=== PATIENT | female | born 1975 | race Caucasian/White ===

== ENCOUNTER 2021-03-10 07:08 | Inpatient (IN) | payer BC ==
[~2021-03-10 07:08] MED LIST: Acetaminophen 500 MG Tab PO ONE; Celecoxib 200 MG Cap PO ONE; Dexamethasone 4 MG/ML SDV ONE; Glycopyrrolate 0.2 MG/ML 5 ML MDV ONE; Ketamine 15 MG in Sodium Chloride 0.9% 19.85 ML IV SCH; Ketamine 500 MG/5 ML MDV IV SCH; Lactated Ringers 1,000 ML ONE; Meropenem 500 MG SDV ONE; Neostigmine Methylsulfate 1 MG/ML 5 ML Syringe ONE; Ondansetron 4 MG/2 ML SDV ONE; Propofol 200 MG/20 ML SDV ONE; Rocuronium 50 MG/5 ML Vial ONE; Scopolamine 1.5 MG Transdermal Patch TOP ONE; Succinylcholine 200 MG/10 ML MDV ONE; cefOXitin 2 GM Vial ONE; fentaNYL 250 MCG/5 ML SDV ONE
[2021-03-10] MEDS ORDERED: Dextrose 5%-Lactated Ringers 1,000 ML IV SCH (07:15)
[2021-03-10] MEDS ORDERED: Albuterol/Ipratropium 3.0-0.5 MG/3 ML Neb Soln NEB ONE (07:15)
[2021-03-10] MEDS ORDERED: Meropenem 500 MG in Sodium Chloride 0.9% 50 ML IV ONE (07:45)
[2021-03-10 08:06] LABS: HEMOGLOBIN A1C 5.1 % (4.5-6.2)
[2021-03-10] MEDS ORDERED: fentaNYL 250 MCG/5 ML SDV ONE ×2 (09:29→09:56)
[2021-03-10] MEDS ORDERED: Metoclopramide 10 MG/2 ML SDV IVPUSH PRN (14:00)
[2021-03-10] MEDS ORDERED: Acetaminophen 500 MG Tab PO PRN (14:00)
[2021-03-10] MEDS ORDERED: Ondansetron 4 MG/2 ML SDV IVPUSH PRN (14:00)
[2021-03-10] MEDS ORDERED: Labetalol 20 MG/4 ML Syringe IVPUSH PRN (14:00)
[2021-03-10] MEDS ORDERED: HYDROmorphone 1 MG/ML Syringe IV PRN (14:00)
[2021-03-10] MEDS ORDERED: HYDROmorphone 0.5 MG/0.5 ML Syringe IVPUSH PRN (14:00)
[2021-03-10] MEDS ORDERED: Albuterol/Ipratropium 3.0-0.5 MG/3 ML Neb Soln INH PRN (14:00)
[2021-03-10] MEDS ORDERED: diphenhydrAMINE 50 MG/ML SDV IVPUSH PRN (14:00)
[2021-03-10] MEDS: Acetaminophen 500 MG Tab PO SCH ×2 (14:18→22:47)
[2021-03-10] MEDS: hydrOXYzine HCL 100 MG/2 ML SDV IM PRN ×2 (14:21→19:28)
[2021-03-10] MEDS: Albuterol/Ipratropium 3.0-0.5 MG/3 ML Neb Soln INH SCH ×2 (14:34→20:40)
[2021-03-10] MEDS: Pantoprazole 40 MG Vial IVPUSH SCH (14:52)
[2021-03-10] MEDS: Meropenem 500 MG in Sodium Chloride 0.9% 50 ML IV SCH ×2 (14:52→20:41)
[2021-03-10] MEDS: oxyCODONE 5 MG Tab PO PRN ×2 (15:24→22:47)
[2021-03-10] MEDS: MVI, Adult with Vitamin K 10 ML, Thiamine 200 MG, Zinc/Copper/Manganese/Selenium 1 ML i... IV SCH ×4 (15:26)
[2021-03-10] MEDS: Cyclobenzaprine 10 MG Tab PO PRN (16:47)
[2021-03-10] MEDS: Heparin Sodium 5,000 Units/ML Vial SUBCUT SCH (17:33)
[2021-03-10] MEDS: traZODone 50 MG Tab PO PRN (20:40)
[2021-03-10] MEDS: Formoterol/Mometasone 200-5 MCG 8.8 GM Inhaler IH SCH (20:40)
[2021-03-10] MEDS: ClonazePAM 0.5 MG Tab PO SCH (20:40)
[2021-03-10] MEDS: Montelukast 10 MG Tab PO SCH (20:41)
[2021-03-10] MEDS: Dextrose 5%-Lactated Ringers 1,000 ML IV SCH (20:55)
[2021-03-11] MEDS: Cyclobenzaprine 10 MG Tab PO PRN (01:43)
[2021-03-11] MEDS ORDERED: Iopamidol 612 MG/ML 50 ML SDV PO STA (01:55)
[2021-03-11] MEDS: Meropenem 500 MG in Sodium Chloride 0.9% 50 ML IV SCH ×2 (02:27→09:23)
[2021-03-11] MEDS: hydrOXYzine HCL 100 MG/2 ML SDV IM PRN ×2 (02:32→07:10)
--- NOTE | 2021-03-11 03:26 | CRLCR ---
For Patients: As a result of the Century Cures Act, medical imaging exams and procedure reports are released immediately into your electronic medical record. You may view this report before your referring provider. If you have questions, please contact your health care provider. Indication: Status post duodenal switch surgery. Technique: Abdomen with oral contrast 5 views. Comparison: None. Findings/Impression: Oral contrast flows through the stomach into the small bowel. No sign of oral contrast extravasation/leak. No bowel obstructive changes or other significant abnormality. Dictated by Chriss Arnold MD @ 03/13/2021 10:15:42 AM (Electronically Signed)
[2021-03-11] MEDS: Dextrose 5%-Lactated Ringers 1,000 ML IV SCH ×3 (04:00→13:21)
[2021-03-11] MEDS: Heparin Sodium 5,000 Units/ML Vial SUBCUT SCH ×2 (05:08→18:04)
[2021-03-11] MEDS: Acetaminophen 500 MG Tab PO SCH ×3 (05:08→22:34)
[2021-03-11] MEDS: oxyCODONE 5 MG Tab PO PRN ×3 (05:08→20:00)
[2021-03-11] MEDS ORDERED: Ondansetron 4 MG Tab.DIS PO PRN (06:20)
[2021-03-11] MEDS: Levothyroxine 25 MCG Tab PO SCH (07:09)
[2021-03-11] MEDS: Albuterol/Ipratropium 3.0-0.5 MG/3 ML Neb Soln INH SCH ×4 (07:18→20:31)
[2021-03-11] MEDS: Formoterol/Mometasone 200-5 MCG 8.8 GM Inhaler IH SCH ×2 (07:40→20:32)
--- NOTE | 2021-03-11 08:53 | PN ---
DATE OF SERVICE: 03/11/2021 SUBJECTIVE: Alicia is postop day 1. Vital signs have been stable. Upper GI is normal. Oral intake 510. Urine output via Reyes catheter is 2550. FRED put out 90 mL of a light red drainage. She does reports some midepigastric discomfort. States it feels like a bubble. Has had no other questions or concerns. Has been using her incentive spirometer. OBJECTIVE: GENERAL: Alicia is a pleasant 45-year-old female. She is alert, orientated, has the head of the bed raised to almost a sitting position. VITAL SIGNS: TPR is 98.8, 79, 18. Blood pressure 148/77. HEENT: Negative. NECK: Supple. HEART: Regular rate and rhythm. LUNGS: Clear. ABDOMEN: Abdominal binder is on. Dressings dry and intact. FRED drain as above. EXTREMITIES: Without peripheral edema. ASSESSMENT: 1. Diagnostic laparoscopy with laparoscopic duodenal switch. 2. Liver biopsy. 3. Repair of paraesophageal hernia. 4. Excision of mediastinal lipoma. 5. Excision of nodular lesion, mid greater curvature of stomach. POSTOPERATIVE DIAGNOSES: 1. Morbid obesity, body mass index 46. 2. Hepatomegaly. 3. Paraesophageal diaphragmatic hernia. 4. Mediastinal lipoma. 5. Nodular lesion, mid greater curvature of the stomach. Date of procedure: 03/10/2021. Surgeon: Steven Davenport MD PLAN: 1. Decrease IV to 100 mL per hour. 2. Step 2 gastric bypass diet with no cereal. 3. Communication order for 3 med cups per hour, 1 every 20 minutes. 4. Zofran ODT 4 mg q.4 hours sublingual p.r.n. nausea. 5. Atarax 50 mg q.4 hours p.r.n. pain. 6. Discontinue Reyes catheter. 7. Discontinue continuous pulse ox. 8. Discontinue telemetry. 9. Continue use of incentive spirometer. 10.Ambulate 6 times daily and reminder to use energy protocol for pain management. 11.We will evaluate p.r.n. or in a.m. Agatha Richardson PA-C /[id number]
[2021-03-11] MEDS: traMADol 50 MG Tab PO PRN (09:22)
[2021-03-11] MEDS: DULoxetine 30 MG Cap PO SCH (09:27)
[2021-03-11] MEDS: Fluticasone Propionate Nasal Spray 16 GM Bottle NASBOTH SCH (09:27)
[2021-03-11] MEDS: Celecoxib 200 MG Cap PO SCH (09:27)
[2021-03-11] MEDS: buPROPion 150 MG Tab.ER PO SCH (09:27)
[2021-03-11] MEDS: SCOPOLAMINE PATCH CHECK TOP SCH (09:28)
--- NOTE | 2021-03-11 10:08 | OR ---
DATE OF PROCEDURE: 03/10/2021 SURGEON: Steven Davenport MD PREOPERATIVE DIAGNOSIS: Morbid obesity. POSTOPERATIVE DIAGNOSES: 1. Morbid obesity. 2. Marked hepatomegaly. 3. Paraesophageal diaphragmatic hernia. 4. Mediastinal lipoma. 5. Nodular lesion on mid greater curvature of stomach. OPERATIVE PROCEDURES: Diagnostic laparoscopy with: 1. Laparoscopic duodenal switch (04825). 2. Aayush-Cut needle liver biopsy (50029). 3. Repair of paraesophageal diaphragmatic hernia (90819). 4. Excision of mediastinal lipoma (74662). 5. Excision of nodular lesion on greater curvature of stomach (54531). ANESTHESIA: General. TUBE BENDING MACHINE OPERATOR: Agatha Richardson PA-C INDICATIONS FOR PROCEDURE: This is a 45-year-old female presenting with longstanding morbid obesity and increasingly significant comorbidities. After preoperative evaluation and discussion, she wished to proceed with a duodenal switch. Potential risks of the procedure including bleeding, infection, injury to underlying viscera, problems with leaks from the GI tract, staple lines, or anastomosis as well as possibility of cardiopulmonary, septic, or hemorrhagic complications leading to were discussed, and the patient wishes to proceed. DETAILS OF PROCEDURE: The patient was taken to the operating room, and after general endotracheal anesthesia was induced, was placed in a lithotomy position. Reyes catheter was inserted, and the abdomen prepped and draped. 20 cm inferior and 5 cm left of the xiphoid process, a transverse incision was made, and the peritoneal cavity entered under direct vision with an Optiview trocar. Bilateral transversus abdominis plane blocks were placed, and 5 additional trocars were then placed across the upper mid abdomen. Some adhesions between the omentum and the anterior abdominal wall were taken down with Harmonic scalpel. The liver was noted to be markedly fatty, infiltrated, and a Aayush-Cut needle biopsy obtained from left lobe of liver. Minimal bleeding from the biopsy site was controlled with electrocautery. The small bowel was then identified at the ileocecal valve and then traced back 300 cm. Of note, there are no significant adhesions in the small bowel despite the patient having fairly extensive previous pelvic surgery and the small bowel came up to the level of the duodenum without any significant tension. A suture was then placed between the omentum and small bowel of 300 cm lisa to allow a subsequent ease of identification. The liver was retracted anteriorly. The patient was noted to have 2 findings. One was a roughly 2 to 3 mm nodular lesion on the mid greater curvature of the stomach. This was excised and sent as a separate specimen. If this happens to be neoplastic and margins are reported as close or positive, it should be noted that subsequent sleeve gastrectomy revealed several centimeter margin away from the nodular lesion and in terms of the resected stomach. The patient also noted to have significant paraesophageal diaphragmatic hernia. The latter was then reduced, and the peritoneum overlying incised and reflected downward. During the course of the crural dissection, a mediastinal lipoma was encountered, and this was excised to allow more satisfactory closure of the crura, which was accomplished with an anterior approach using 0 Ethibond sutures reinforced with PTFE pledgets. At this point, the greater curvature was divided away from the omentum in the mid greater curvature. This extended proximally to include the short gastric including highest and posterior short gastric vessels. The fundus of the stomach was colonized away from the left linh, and then the inspection of the omentum then continued distally 2.4 cm distal to the pyloric sphincter. At that point, the sleeve gastrectomy resection began beginning 6 cm proximal to the pyloric sphincter. The first firings were reinforced with black loads with care being taken to avoid overtightening at level of incisura angularis. A 40-Mongolian chest tube was then passed orally and positioned along the lesser curvature of the stomach, and the remainder of the sleeve gastrectomy was accomplished with reinforced black loads using the chest tube as a template for the plane of resection. The stomach was then retrieved off the side. Staple lines were inspected and found to be intact. At this point, the duodenum was dissected posteriorly. 0.4 cm distal to the pylorus was divided then with a SCOTT purple load with reinforcement. One additional firing of the SCOTT turner load on the superior side of the proximal end of the divided duodenum was then made which allowed a drop down of the duodenum to allow minimal tension or angulation at the level of the subsequent duodenoileostomy. The ileum was then brought up to the proximal and divided end of the duodenum, and the superior inferior aspects of stay sutures were placed between the reinforcement material, and the small bowel enterotomy was then made in the inferior aspect of the duodenum and the adjacent portion of the ileum, and the SCOTT turner load was then used to create a common opening. Three sutures were then placed across the remaining common opening. These should be elevated. This was then closed off with a SCOTT purple load. Latter staple line was then reinforced with some 3-0 Vicryl seromuscular stitches and the entire area of the anastomosis was reinforced with fibrin sealant as was the entire length of the sleeve gastrectomy staple line focusing quickly on the area of gastroesophageal junction, and a mild patch was then brought up against the esophagogastric junction as well to reinforce that area. Two additional stitches were placed between the small bowel proximal to the duodenal ileostomy and the antrum and subsequently the omentum to facilitate forward flow through the small bowel into the efferent limb. It was felt that the second anastomosis would be contraindicated in this case due to the amount of tension related to the mesenteric and subsequent possibility of this action disrupting the duodenal ileostomy and the latter portion of the procedure could be completed at a later time if necessary. With the oral gastric tube in place at this point and the chest tube having been removed, air was inflated into the sleeve gastrectomy. Good flow of air through the duodenal ileostomy and into the efferent limb of the ileum was noted and no leaks were noted at any point along the anastomosis for sleeve gastrectomy staple line. The bowel was submerged with an antibiotic-containing saline solution. At this point, the gastric specimen was retrieved through the left lateral trocar site, and through that trocar site area, 10 flat Jayjay-Munoz drain was placed up against the proximal end of the sleeve gastrectomy staple line and from there into the splenic fossa. Trocars were then sequentially removed and peritoneal cavity deflated. Incisions were closed with some 4-0 Vicryl skin stitch and the drain affixed with the same stitch as well and the patient taken to the recovery room in satisfactory condition. Physician assistant restaurant general manager, Agatha Richardson, played an essential role in assisting in this case, helping to position the patient, retract structures as needed, as well as suturing and cutting sutures as indicated. Her presence improved patient safety and decreased operative time. Steven Davenport MD /[id number]
[2021-03-11] MEDS ORDERED: Calcium Carbonate 500 MG Tab.Chew PO PRN (12:05)
[2021-03-11] MEDS ORDERED: HYDROmorphone 0.5 MG/0.5 ML Syringe IVPUSH PRN (12:05)
[2021-03-11] MEDS ORDERED: Ketorolac 30 MG/ML SDV IM ONE (12:30)
[2021-03-11] MEDS: Pantoprazole 40 MG Vial IVPUSH SCH (15:28)
[2021-03-11] MEDS: hydrOXYzine HCl 25 MG Tab PO PRN (16:07)
[2021-03-11] MEDS: MVI, Adult with Vitamin K 10 ML, Thiamine 200 MG, Zinc/Copper/Manganese/Selenium 1 ML i... IV SCH ×4 (16:07)
[2021-03-11] MEDS: traZODone 50 MG Tab PO PRN (20:31)
[2021-03-11] MEDS: Montelukast 10 MG Tab PO SCH (20:31)
[2021-03-11] MEDS: ClonazePAM 0.5 MG Tab PO SCH (20:31)
[2021-03-12] MEDS: traMADol 50 MG Tab PO PRN ×2 (01:46→09:08)
[2021-03-12] MEDS: Dextrose 5%-Lactated Ringers 1,000 ML IV SCH (01:52)
[2021-03-12] MEDS: oxyCODONE 5 MG Tab PO PRN ×2 (03:54→19:31)
[2021-03-12] MEDS: Heparin Sodium 5,000 Units/ML Vial SUBCUT SCH ×2 (05:50→17:05)
[2021-03-12] MEDS: Acetaminophen 500 MG Tab PO SCH ×3 (05:51→22:12)
[2021-03-12] MEDS: hydrOXYzine HCl 25 MG Tab PO PRN ×2 (05:55→12:57)
[2021-03-12] MEDS: Albuterol/Ipratropium 3.0-0.5 MG/3 ML Neb Soln INH SCH ×4 (07:06→20:59)
[2021-03-12] MEDS: Formoterol/Mometasone 200-5 MCG 8.8 GM Inhaler IH SCH ×2 (07:06→20:59)
[2021-03-12] MEDS: Levothyroxine 25 MCG Tab PO SCH (07:15)
--- NOTE | 2021-03-12 07:27 | PN ---
DATE OF SERVICE: 03/12/2021 SUBJECTIVE: Alicia is postop day 1. She states she is getting her pain under control. Taking oxycodone, tramadol, and Tylenol along with Atarax, Flexeril, and Celebrex. She has been up ambulating. Afebrile. Vital signs stable. Oral intake 1550. Urine output of 3300. FRED drain put out 100 mL of a light pink drainage. REVIEW OF SYSTEMS: Remainder of review of systems negative for any pertinent positives and negatives. OBJECTIVE: GENERAL: Alicia is a pleasant 45-year-old female. She is sitting up in bed, alert and orientated, just came back from a walk. VITAL SIGNS: TPR is 98, 89, and 18. Blood pressure 129/72. HEENT: Negative. NECK: Supple. HEART: Regular rate and rhythm. LUNGS: Clear. ABDOMEN: Dressings dry and intact. FRED drain as above. Abdominal binder is on. EXTREMITIES: Without peripheral edema. ASSESSMENT: 1. Diagnostic laparoscopy with laparoscopic duodenal switch. 2. Aayush-Cut needle liver biopsy. 3. Repair of paraesophageal diaphragmatic hernia. 4. Excision of mediastinal lipoma. 5. Excision of nodular lesion on greater curvature of the stomach. POSTOPERATIVE DIAGNOSES: 1. Morbid obesity. 2. Marked hepatomegaly. 3. Paraesophageal diaphragmatic hernia. 4. Mediastinal lipoma. 5. Nodular lesion on the greater curvature of the stomach. Date of procedure: 03/10/2021. Surgeon: Steven Davenport MD. PLAN: 1. Milk of magnesia 30 mL b.i.d. today. 2. Dulcolax tablets 10 mg p.o. b.i.d. 3. Stop bowel stimulation when patient has a bowel movement. 4. Continue use of incentive spirometer and ambulation. 5. We will evaluate p.r.n. or in a.m. Agatha Richardson PA-C /[id number]
[2021-03-12] MEDS ORDERED: Bisacodyl 5 MG Tab PO SCH (09:00)
[2021-03-12] MEDS ORDERED: Magnesium Hydroxide 400 MG/5 ML Susp 30 ML Cup PO SCH (09:00)
[2021-03-12] MEDS ORDERED: Cyanocobalamin (Vitamin B12) 1,000 MCG/ML SDV IM ONE (09:00)
[2021-03-12] MEDS: DULoxetine 30 MG Cap PO SCH (09:15)
[2021-03-12] MEDS: Fluticasone Propionate Nasal Spray 16 GM Bottle NASBOTH SCH (09:16)
[2021-03-12] MEDS: Celecoxib 200 MG Cap PO SCH ×2 (09:16→21:01)
[2021-03-12] MEDS: buPROPion 150 MG Tab.ER PO SCH (09:17)
[2021-03-12] MEDS: SCOPOLAMINE PATCH CHECK TOP SCH (09:17)
[2021-03-12] MEDS ORDERED: Pantoprazole 40 MG Delayed-Release Granules 1 Packet PO SCH (16:30)
[2021-03-12] MEDS: Montelukast 10 MG Tab PO SCH (21:00)
[2021-03-12] MEDS: ClonazePAM 0.5 MG Tab PO SCH (21:07)
[2021-03-12] MEDS: traZODone 50 MG Tab PO PRN (22:12)
[2021-03-13] MEDS: Acetaminophen 500 MG Tab PO SCH (05:46)
[2021-03-13] MEDS: Heparin Sodium 5,000 Units/ML Vial SUBCUT SCH (05:47)
[2021-03-13] MEDS: Albuterol/Ipratropium 3.0-0.5 MG/3 ML Neb Soln INH SCH (07:10)
[2021-03-13] MEDS: Formoterol/Mometasone 200-5 MCG 8.8 GM Inhaler IH SCH (07:11)
[2021-03-13] MEDS: Levothyroxine 25 MCG Tab PO SCH (07:24)
[2021-03-13] MEDS: Fluticasone Propionate Nasal Spray 16 GM Bottle NASBOTH SCH (08:29)
[2021-03-13] MEDS: Celecoxib 200 MG Cap PO SCH (08:31)
[2021-03-13] MEDS: DULoxetine 30 MG Cap PO SCH (08:32)
[2021-03-13] MEDS: buPROPion 150 MG Tab.ER PO SCH (08:38)
[2021-03-13] MEDS: oxyCODONE 5 MG Tab PO PRN (09:25)
--- NOTE | 2021-03-14 20:51 | DISCH ---
ADMISSION DIAGNOSES: 1. Morbid obesity. 2. Body mass index 46. 3. Obstructive sleep apnea. 4. Asthma. 5. Polycystic ovary syndrome. DISCHARGE DIAGNOSES: Diagnostic laparoscopy with: 1. Laparoscopic duodenal switch. 2. Aayush-cut needle liver biopsy. 3. Repair of paraesophageal diaphragmatic hernia. 4. Excision of mediastinal lipoma. 5. Excision of nodular lesion on greater curvature of the stomach. POSTOPERATIVE DIAGNOSES: 1. Morbid obesity. 2. Marked hepatomegaly. 3. Paraesophageal diaphragmatic hernia. 4. Mediastinal lipoma. 5. Nodular lesion on mid greater curvature of stomach. Date of procedure: 03/10/2021. Surgeon: Steven Davenport MD. HISTORY: Alicia is a pleasant 45-year-old female with longstanding history of morbid obesity and increasing comorbidities. After preoperative evaluation and discussion of possible risks and possible complications, she wished to proceed with surgical procedure. HOSPITAL COURSE: Alicia had her surgery on 03/10/2021. She had no operative complications. On postop day 1, she was started on a step 2 gastric bypass diet without cereal. IV was decreased and her Reyes catheter was discontinued. On postop day 2, she received vitamin B12, 1000 IM injection. Dietary instructions and bowel stimulation. On postop day 3, she was able to be discharged to home. Vital signs were stable. Pain was managed, activity was good, and oral intake was adequate. PHYSICAL EXAMINATION: GENERAL: Alicia is a 45-year-old female. VITAL SIGNS: Height is 5 feet 2 inches, weight is 252 pounds, BMI 46.1. TPR 98.9, 99, 18, blood pressure 143/63. HEENT: Negative. NECK: Supple. HEART: Regular rate and rhythm. LUNGS: Clear. ABDOMEN: Dressings dry and intact. Sutures intact. Incisions healing well. FRED drain will be removed prior to discharge. Abdominal binder has been on. EXTREMITIES: Without peripheral edema. DISPOSITION: Discharged to home. CONDITION: Stable and improving. FOLLOWUP APPOINTMENT: With Agatha Richardson PA-C, at [facility] on 03/23/2021 at 10 a.m. HOME MEDICATIONS: 1. Celebrex 200 mg p.o. b.i.d., #28. 2. Atarax 50 mg q.4 hours p.r.n. pain, #30. 3. Tylenol Extra Strength 500 mg, take 2 q.8 hours as needed for pain. 4. Zofran ODT 4 mg q.4 hours p.r.n. nausea. 5. Resume home medication, trazodone 200 mg p.r.n. 6. Bupropion 300 mg oral daily. 7. Sinus rinse as directed. 8. Imitrex 6 mg subcu as directed p.r.n. migraine headaches. 9. Phenergan 25 mg every 8 hours p.r.n. nausea for migraine headaches. 10.Singulair 10 mg oral daily. 11.Levothyroxine 50 oral daily. 12.Epinephrine 0.3 injection as needed, allergic reaction, anaphylaxis. 13.Cymbalta 120 mg oral daily. 14.Flexeril 10 mg 3 times a day p.r.n. muscle spasms. 15.Klonopin 0.5 mg at h.s. 16.Symbicort 160/4.5 2 inhalations every 12 hours. 17.DuoNebs as directed. 18.Albuterol ProAir inhaler 2 inhalations every 4 hours. 19.Flonase 2 sprays in each nostril as directed. DIET: Step 2 gastric bypass with no cereal until 04/11/2021. Drink 8 to 10 glasses of water a day. ACTIVITY: No lifting greater than 10 pounds for 1 week. OTHER ACTIVITY: Walk 6 times daily inside your home. Driving: Do not drive for 1 week. Shower/bathing: May shower. Notify provider if any fever, increased pain, swelling, redness, drainage, nausea, vomiting. Wound incision care: Keep site clean and dry. Wear abdominal binder for 6 weeks and then as tolerated. SPECIAL INSTRUCTION: Use incentive spirometer 10 times every hour while awake. Walk 3 to 4 minutes for every hour while riding in your car. /[id number]
== END 2021-03-13 10:25 | disposition home or self-care (01) | DRG 403 ==
LOC: JP.SDS 07:08 → EDSTATUS 07:15 → JP.MS 13:14
PROVIDERS: ADMIT Surgery; ATTEND Surgery
PROC: 0FB24ZX Excision of Left Lobe Liver, Percutaneous Endoscopic Approach, Diagnostic (ICD-10-PCS; principal; 2021-03-10)
PROC: 0D194ZB Bypass Duodenum to Ileum, Percutaneous Endoscopic Approach (ICD-10-PCS; principal; 2021-03-10)
PROC: 0HB7XZZ Excision of Abdomen Skin, External Approach (ICD-10-PCS; principal; 2021-03-10)
PROC: 0BQT4ZZ Repair Diaphragm, Percutaneous Endoscopic Approach (ICD-10-PCS; principal; 2021-03-10)
PROC: 0JB63ZZ Excision of Chest Subcutaneous Tissue and Fascia, Percutaneous Approach (ICD-10-PCS; principal; 2021-03-10)
PROC: 0DB64Z3 Excision of Stomach, Percutaneous Endoscopic Approach, Vertical (ICD-10-PCS; principal; 2021-03-10)
DX: E66.01 Morbid (severe) obesity due to excess calories (principal); Z68.42 Body mass index [BMI] 45.0-49.9, adult; G47.33 Obstructive sleep apnea (adult) (pediatric); J45.909 Unspecified asthma, uncomplicated; E28.2 Polycystic ovarian syndrome; R16.0 Hepatomegaly, not elsewhere classified; K44.9 Diaphragmatic hernia without obstruction or gangrene; D17.4 Benign lipomatous neoplasm of intrathoracic organs; L98.9 Disorder of the skin and subcutaneous tissue, unspecified
CPT/HCPCS: 36415; 74240; 82947; 83036; 84443; 86850; 86900; 86901; 88304; 88305; 88307; 88313; 88341; 88342; 94640; A9270-GY; C9113; J0171; J0330; J0694; J1100; J1170; J1644; J1885; J2185; J2405; J2704; J2710; J2795; J3010; J3410; J3411; J3420; J3490; J7120; J7121; J7620-GY; Q9967

== ENCOUNTER 2023-01-17 07:52 | Inpatient (IN) | payer BC ==
[2023-01-17] MEDS ORDERED: fentaNYL 250 MCG/5 ML SDV ONE ×2 (07:57→09:54)
[2023-01-17] MEDS ORDERED: Propofol 200 MG/20 ML SDV ONE (07:57)
[2023-01-17] MEDS ORDERED: Glycopyrrolate 0.2 MG/ML 5 ML MDV ONE (07:57)
[2023-01-17] MEDS ORDERED: Neostigmine Methylsulfate 1 MG/ML 5 ML Syringe ONE (07:57)
[2023-01-17] MEDS ORDERED: Succinylcholine 200 MG/10 ML MDV ONE (07:57)
[2023-01-17] MEDS ORDERED: Ondansetron 4 MG/2 ML SDV ONE (07:57)
[2023-01-17] MEDS ORDERED: Dexamethasone 4 MG/ML SDV ONE (07:57)
[2023-01-17] MEDS ORDERED: Rocuronium 50 MG/5 ML Vial ONE (07:57)
[2023-01-17] MEDS: Albuterol/Ipratropium 3.0-0.5 MG/3 ML Neb Soln NEB ONE ×2 (08:57→09:36)
[2023-01-17] MEDS ORDERED: Scopolamine 1.5 MG Transdermal Patch TOP SCH (09:00)
[2023-01-17] MEDS ORDERED: Meropenem 500 MG SDV ONE (09:15)
[2023-01-17] MEDS ORDERED: Bupivacaine 0.5% 50 ML MDV ONE (09:15)
[2023-01-17] MEDS ORDERED: Celecoxib 200 MG Cap PO ONE (09:15)
[2023-01-17] MEDS ORDERED: Lidocaine 1% with EPINEPHrine 1:100,000 50 ML MDV ONE (09:16)
[2023-01-17] MEDS ORDERED: Dextrose 5%-Lactated Ringers 1,000 ML IV SCH (09:30)
[2023-01-17] MEDS ORDERED: Ropivacaine 30 ML, dexAMETHasone 8 MG, EPINEPHrine 0.4 MG, Sodium Chloride 0.9% 47.6 ML NERVRT SCH ×4 (09:45)
[2023-01-17] MEDS ORDERED: Ketamine 15 MG in Sodium Chloride 0.9% 19.85 ML IV SCH (09:45)
[2023-01-17] MEDS ORDERED: Ketamine 500 MG/5 ML MDV IV SCH (09:45)
[2023-01-17] MEDS ORDERED: Naloxone 0.4 MG/ML SDV IV PRN (10:00)
[2023-01-17] MEDS ORDERED: Meropenem 500 MG in Sodium Chloride 0.9% 50 ML IV ONE (10:30)
[2023-01-17] MEDS ORDERED: cefOXitin 2 GM in Sodium Chloride 0.9% 50 ML IV ONE (10:30)
[2023-01-17] MEDS ORDERED: Lactated Ringers 1,000 ML ONE (10:39)
[2023-01-17] MEDS: HYDROmorphone/Normal Saline 6 MG/30 ML PCA Vial IV PRN (10:51)
[2023-01-17] MEDS ORDERED: Cyclobenzaprine 10 MG Tab PO PRN (13:11)
[2023-01-17] MEDS ORDERED: SINUS RINSE NASBOTH PRN (13:21)
[2023-01-17] MEDS: diphenhydrAMINE 50 MG/ML SDV IVPUSH PRN ×2 (13:45→20:52)
[2023-01-17] MEDS ORDERED: Ondansetron 4 MG/2 ML SDV IVPUSH PRN (14:00)
[2023-01-17] MEDS ORDERED: Albuterol/Ipratropium 3.0-0.5 MG/3 ML Neb Soln INH PRN (14:00)
[2023-01-17] MEDS ORDERED: hydrOXYzine HCL 100 MG/2 ML SDV IM PRN (14:00)
[2023-01-17] MEDS ORDERED: Metoclopramide 10 MG/2 ML SDV IVPUSH PRN (14:00)
[2023-01-17] MEDS ORDERED: Acetaminophen 500 MG Tab PO PRN (14:00)
[2023-01-17] MEDS ORDERED: Labetalol 20 MG/4 ML Syringe IVPUSH PRN (14:00)
[2023-01-17] MEDS: Albuterol/Ipratropium 3.0-0.5 MG/3 ML Neb Soln INH SCH ×2 (14:28→20:52)
[2023-01-17] MEDS: Meropenem 500 MG in Sodium Chloride 0.9% 50 ML IV SCH ×2 (15:38→21:00)
[2023-01-17] MEDS ORDERED: MVI, Adult with Vitamin K 10 ML, Thiamine 200 MG, Zinc/Copper/Manganese/Selenium 1 ML i... IV SCH ×4 (16:00)
[2023-01-17] MEDS ORDERED: Pantoprazole 40 MG Vial IVPUSH SCH (16:00)
[2023-01-17] MEDS: Heparin Sodium 5,000 Units/ML Vial SUBCUT SCH (17:25)
[2023-01-17] MEDS: Acetaminophen 500 MG Tab PO SCH (17:34)
[2023-01-17] MEDS: fluvoxaMINE 100 MG Tab PO SCH (17:34)
[2023-01-17] MEDS: busPIRone 10 MG Tab PO SCH (20:53)
[2023-01-17] MEDS: Montelukast 10 MG Tab PO SCH (20:54)
[2023-01-17] MEDS: Dextrose 5%-Lactated Ringers 1,000 ML IV SCH (22:30)
[2023-01-18] MEDS: Acetaminophen 500 MG Tab PO SCH ×3 (01:27→17:17)
[2023-01-18] MEDS: Dextrose 5%-Lactated Ringers 1,000 ML IV SCH (04:14)
[2023-01-18] MEDS: Meropenem 500 MG in Sodium Chloride 0.9% 50 ML IV SCH ×2 (04:14→09:08)
[2023-01-18] MEDS ORDERED: Iopamidol 612 MG/ML 30 ML SDV PO ONE (05:06)
[2023-01-18] MEDS: HYDROmorphone/Normal Saline 6 MG/30 ML PCA Vial IV PRN (05:41)
[2023-01-18] MEDS: Heparin Sodium 5,000 Units/ML Vial SUBCUT SCH ×2 (05:50→17:17)
[2023-01-18] MEDS: Albuterol/Ipratropium 3.0-0.5 MG/3 ML Neb Soln INH SCH ×4 (07:07→20:07)
[2023-01-18] MEDS ORDERED: Ondansetron 4 MG Tab.DIS PO PRN (07:53)
[2023-01-18] MEDS ORDERED: fentaNYL/Normal Saline 600 MCG/30 ML PCA Vial IV PRN (09:00)
[2023-01-18] MEDS: busPIRone 10 MG Tab PO SCH ×2 (09:04→20:08)
[2023-01-18] MEDS: Celecoxib 200 MG Cap PO SCH ×2 (09:05→20:08)
[2023-01-18] MEDS: buPROPion 100 MG Tab PO SCH ×2 (09:06→12:38)
[2023-01-18] MEDS: SCOPOLAMINE PATCH CHECK TOP SCH (09:06)
[2023-01-18] MEDS: Prazosin 1 MG Cap PO SCH (09:07)
[2023-01-18] MEDS: Pantoprazole 40 MG Tab.CR PO SCH (14:42)
[2023-01-18] MEDS ORDERED: MVI, Adult with Vitamin K 10 ML, Thiamine 200 MG, Zinc/Copper/Manganese/Selenium 1 ML i... IV SCH ×4 (16:00)
[2023-01-18] MEDS: fluvoxaMINE 100 MG Tab PO SCH ×2 (16:52→20:10)
[2023-01-18] MEDS: Montelukast 10 MG Tab PO SCH (20:08)
[2023-01-19] MEDS: Acetaminophen 500 MG Tab PO SCH ×3 (02:02→17:54)
[2023-01-19] MEDS: Dextrose 5%-Lactated Ringers 1,000 ML IV SCH ×2 (02:04→21:36)
[2023-01-19] MEDS: Heparin Sodium 5,000 Units/ML Vial SUBCUT SCH ×2 (05:56→17:54)
[2023-01-19] MEDS: Albuterol/Ipratropium 3.0-0.5 MG/3 ML Neb Soln INH SCH ×4 (07:00→20:22)
[2023-01-19] MEDS: Prazosin 1 MG Cap PO SCH (08:21)
[2023-01-19] MEDS: buPROPion 100 MG Tab PO SCH ×2 (08:22→11:45)
[2023-01-19] MEDS: busPIRone 10 MG Tab PO SCH ×2 (08:22→20:23)
[2023-01-19] MEDS: Celecoxib 200 MG Cap PO SCH ×2 (08:22→20:23)
[2023-01-19] MEDS: SCOPOLAMINE PATCH CHECK TOP SCH (08:23)
[2023-01-19] MEDS: Pantoprazole 40 MG Tab.CR PO SCH (08:23)
[2023-01-19] MEDS ORDERED: Cyanocobalamin (Vitamin B12) 1,000 MCG/ML SDV IM ONE (09:00)
[2023-01-19] MEDS: Bisacodyl 5 MG Tab PO SCH ×2 (09:42→20:24)
[2023-01-19] MEDS: Docusate Sodium 100 MG Cap PO SCH ×2 (09:42→20:23)
[2023-01-19] MEDS: oxyCODONE 5 MG Tab PO PRN ×2 (14:07→20:29)
[2023-01-19] MEDS: Montelukast 10 MG Tab PO SCH (20:24)
[2023-01-19] MEDS ORDERED: fluvoxaMINE 100 MG Tab PO SCH (21:00)
[2023-01-20] MEDS: Acetaminophen 500 MG Tab PO SCH (01:36)
[2023-01-20] MEDS: oxyCODONE 5 MG Tab PO PRN (04:47)
[2023-01-20] MEDS: Heparin Sodium 5,000 Units/ML Vial SUBCUT SCH ×2 (04:48→05:19)
[2023-01-20] MEDS: Albuterol/Ipratropium 3.0-0.5 MG/3 ML Neb Soln INH SCH (07:37)
[2023-01-20] MEDS: Pantoprazole 40 MG Tab.CR PO SCH (07:50)
[2023-01-20] MEDS: buPROPion 100 MG Tab PO SCH (08:23)
[2023-01-20] MEDS: Celecoxib 200 MG Cap PO SCH (08:24)
[2023-01-20] MEDS: Prazosin 1 MG Cap PO SCH (08:24)
[2023-01-20] MEDS: Bisacodyl 5 MG Tab PO SCH (08:24)
[2023-01-20] MEDS: Docusate Sodium 100 MG Cap PO SCH (08:24)
[2023-01-20] MEDS: busPIRone 10 MG Tab PO SCH (08:24)
== END 2023-01-20 09:27 | disposition home or self-care (01) | DRG 220 ==
LOC: JP.SDSSCHI 07:52 → JP.MS 12:10
PROVIDERS: ADMIT Surgery; ATTEND Surgery
PROC: 3E0M05Z Introduction of Adhesion Barrier into Peritoneal Cavity, Open Approach (ICD-10-PCS; principal; 2023-01-17)
PROC: 0DB60ZZ Excision of Stomach, Open Approach (ICD-10-PCS; principal; 2023-01-17)
PROC: 0DW807Z Revision of Autologous Tissue Substitute in Small Intestine, Open Approach (ICD-10-PCS; principal; 2023-01-17)
PROC: 0D160ZA Bypass Stomach to Jejunum, Open Approach (ICD-10-PCS; principal; 2023-01-17)
DX: K91.89 Other postprocedural complications and disorders of digestive system (principal); K56.600 Partial intestinal obstruction, unspecified as to cause; J45.909 Unspecified asthma, uncomplicated; K21.9 Gastro-esophageal reflux disease without esophagitis; F32.A Depression, unspecified; F41.9 Anxiety disorder, unspecified; E53.8 Deficiency of other specified B group vitamins; E53.9 Vitamin B deficiency, unspecified; E60 Dietary zinc deficiency; G43.909 Migraine, unspecified, not intractable, without status migrainosus; G47.00 Insomnia, unspecified; E66.9 Obesity, unspecified; F43.10 Post-traumatic stress disorder, unspecified; E03.9 Hypothyroidism, unspecified; G47.33 Obstructive sleep apnea (adult) (pediatric); Z20.822 Contact with and (suspected) exposure to COVID-19; Z68.24 Body mass index [BMI] 24.0-24.9, adult; Z90.49 Acquired absence of other specified parts of digestive tract; Z98.890 Other specified postprocedural states; Z90.89 Acquired absence of other organs; Z98.51 Tubal ligation status; Z88.8 Allergy status to other drugs, medicaments and biological substances; Z88.2 Allergy status to sulfonamides
CPT/HCPCS: 74240; 74240-26; 88307; 94640; A9270-GY; C9113; J0131; J0171; J0330; J1100; J1170; J1200; J1644; J2020; J2185; J2405; J2704; J2710; J2795; J3010; J3411; J3420; J3490; J7120; J7121; J7620; U0002